=== PATIENT | male | born 1980 | race Caucasian/White ===

== ENCOUNTER 2021-02-05 11:28 | Emergency (ER) | payer MEDICAID ==
[~2021-02-05] VITALS: Ht 167.6 cm; Wt 88.2 kg
[2021-02-05] MEDS ORDERED: CLEOCIN HCL300 MG PO (12:14)
[2021-02-05] MEDS ORDERED: NORCO 325 MG-51 TAB PO (12:26)
[2021-02-05 12:45] VITALS: BP 148/74; PULSE 88; TEMP 97.8
== END 2021-02-05 12:50 | disposition home or self-care (01) ==
LOC: COL.ER 11:28
DX: L05.01 Pilonidal cyst with abscess (principal)

== ENCOUNTER 2021-07-24 23:08 | Emergency (ER) | payer MEDICAID ==
[~2021-07-24] VITALS: Ht 167.6 cm; Wt 84.1 kg
[~2021-07-24 23:08] MED LIST: CLEOCIN HCL300 MG PO; NORCO 325 MG-51 TAB PO
[2021-07-24 23:39] VITALS: TEMP 98.5
[2021-07-25 00:15] LABS: BASO # 0.1 K/mm3 (0.0-0.2); BASO % 0.7 % (0.0-2.0); EOS # 0.1 K/mm3 (0.0-0.7); EOS % 0.8 % (0.0-4.0); GRAN # 5.8 K/mm3 (1.4-6.5); GRAN % 76.5 % (42.2-75.2); HEMATOCRIT 50.6 % (42.0-52.0); MEAN CELL VOLUME 98 fl (80.0-100.0); MEAN CORPUSCULAR HEMOGLOBIN 36 pg (27-31); MEAN CORPUSCULAR HGB CONC 36 g/dl (33.0-37.0); MEAN PLATELET VOLUME 10.1 fl (7.4-10.4); MONO # 0.7 K/mm3 (0.1-0.6); MONO % 8.7 % (1.7-9.3); PLATELET COUNT 159 K/mm3 (130-400); RED BLOOD COUNT 5.14 M/mm3 (4.20-5.60); REDCELL DISTRIBUTION WIDTH-CV 11.8 % (11.5-14.5)
[2021-07-25 00:19] LABS: HEMOGLOBIN 18.3 g/dl (13.5-18.0)
[2021-07-25 00:28] LABS: ALBUMIN 4.4 gm/dL (3.5-5.0); BILIRUBIN,TOTAL 1.2 mg/dL (0.2-1.2); CALCIUM 9.3 mg/dL (8.4-10.2); CREATININE, serum 0.82 mg/dL (0.72-1.25); MAGNESIUM 1.9 mg/dL (1.6-2.6); POTASSIUM 3.8 mmol/L (3.5-4.5); TOTAL PROTEIN 7.7 gm/dL (6.2-8.1)
[2021-07-25] MEDS ORDERED: PROTONIX 40MG T40 MG PO (01:24)
[2021-07-25] MEDS ORDERED: ZOFRAN ODT4 MG PO (01:24)
[2021-07-25 02:15] VITALS: BP 152/93; PULSE 90
== END 2021-07-25 02:30 | disposition home or self-care (01) ==
LOC: COL.ER 23:08
PROVIDERS: Emergency Medicine
DX: K52.9 Noninfective gastroenteritis and colitis, unspecified (principal); K29.70 Gastritis, unspecified, without bleeding; F10.239 Alcohol dependence with withdrawal, unspecified; F17.200 Nicotine dependence, unspecified, uncomplicated; Y90.1 Blood alcohol level of 20-39 mg/100 ml
CPT/HCPCS: J2060; J2405; J2550; J7030

== ENCOUNTER 2021-09-22 08:19 | Emergency (ER) | payer MEDICAID ==
[~2021-09-22] VITALS: Ht 167.6 cm; Wt 81.8 kg
[~2021-09-22 08:19] MED LIST changes: +PROTONIX 40MG T40 MG PO; +ZOFRAN ODT4 MG PO
[2021-09-22 08:26] VITALS: TEMP 98.2
[2021-09-22 09:38] VITALS: BP 139/78; PULSE 97
== END 2021-09-22 09:38 | disposition home or self-care (01) ==
LOC: COL.ER 08:19
DX: S63.502A Unspecified sprain of left wrist, initial encounter (principal); X58.XXXA Exposure to other specified factors, initial encounter

== ENCOUNTER 2021-11-22 21:13 | Emergency (ER) | payer MEDICAID ==
[~2021-11-22] VITALS: Ht 152.4 cm; Wt 81.8 kg
[2021-11-22 21:19] VITALS: TEMP 96.1
[2021-11-22] MEDS ORDERED: FLEXERIL 1010 MG/TAB PO (22:37)
[2021-11-22 23:02] VITALS: BP 141/87; PULSE 86
== END 2021-11-22 23:02 | disposition home or self-care (01) ==
LOC: COL.ER 21:13
DX: R07.89 Other chest pain (principal); Z20.822 Contact with and (suspected) exposure to COVID-19; Z28.310 Unvaccinated for COVID-19; Z87.09 Personal history of other diseases of the respiratory system